=== PATIENT | male | born 1940 | race Caucasian/White ===

== ENCOUNTER → 2020-01-22 | Outpatient (CLI) | payer OTHER, MEDICARE ==
[~2020-01-22] MED LIST: HYDROCHLOROTH12.5 M1 PO
== END ==
LOC: SJCVC 13:56
DX: I44.0 Atrioventricular block, first degree (principal); I10 Essential (primary) hypertension; I25.10 Atherosclerotic heart disease of native coronary artery without angina pectoris

== ENCOUNTER → 2020-01-26 | Outpatient (CLI) | payer OTHER, MEDICARE ==
[~2020-01-26] MED LIST changes: +AMLODIPINE BESY10 MG PO; +ASPIR 8181 MG PO; +BRILINTA90 MG PO; +CRESTOR10 MG PO; +FLOMAX0.4 MG PO; +PROSCAR 5MG TABL5 MG PO
== END ==
LOC: SJCVCIMAG 09:31
DX: Z01.810 Encounter for preprocedural cardiovascular examination (principal); I25.10 Atherosclerotic heart disease of native coronary artery without angina pectoris; R93.1 Abnormal findings on diagnostic imaging of heart and coronary circulation

== ENCOUNTER 2020-02-05 09:29 | Observation (INO) | payer OTHER, MEDICARE ==
[~2020-02-05] VITALS: Ht 180.3 cm; Wt 91.3 kg
[~2020-02-05 09:29] MED LIST changes: -AMLODIPINE BESY10 MG PO; -ASPIR 8181 MG PO; -BRILINTA90 MG PO; -CRESTOR10 MG PO; -FLOMAX0.4 MG PO; -PROSCAR 5MG TABL5 MG PO
[2020-02-05 10:20] VITALS: BP 146/86
[2020-02-05 10:20] LABS: HEMATOCRIT 42.9 % (42.0-52.0); HEMOGLOBIN 14.4 gm/dL (14.0-18.0); MCH 30.1 pg (26.0-34.0); MCHC 33.5 g/dL (28.0-37.0); MCV 89.9 fL (80.0-100.0); RBC 4.78 mil/uL (4.50-6.00); RDW 13.5 % (10.5-14.5); WBC 5.6 thou/uL (4.0-11.0)
[2020-02-05] MEDS ORDERED: AMLODIPINE BESY10 MG PO (10:26)
[2020-02-05] MEDS ORDERED: PROSCAR 5MG TABL5 MG PO (10:27)
[2020-02-05] MEDS ORDERED: CRESTOR10 MG PO (10:27)
[2020-02-05] MEDS ORDERED: FLOMAX0.4 MG PO (10:27)
[2020-02-05 10:30] LABS: CALCIUM 9.1 mg/dL (8.5-10.1); CREATININE 1.2 mg/dL (0.7-1.3); POTASSIUM 4.1 mmol/L (3.5-5.1)
[2020-02-05 12:47] VITALS: BP 138/61
[2020-02-05 14:45] VITALS: BP 138/61
--- NOTE | 2020-02-05 15:15 | NUR ---
PT ARRIVED TO UNIT AT APPROX 1445. PT ALERT AND ORIENTED.VSS. DENIES PAIN. O2 SATS WNL ON ROOM AIR. RIGHT GROIN SITE CDI, NO HEMATOMA. BEDREST INITIATED. ADMISSION COMPLETE. POST CATH VITALS INITIATED. ADMISSION STRIP PRINTED AND DOCUMENTED. FLUIDS INFUSING PER ORDERS. HOME MEDS RESUMED PER ORDERS. PT CURRENTLY RESTING COMFORTABLY IN BED WITH NO APPARENT NEEDS. WILL CONTINUE TO MONITOR GROIN SITE, AND ASSIST WITH ANY NEEDS. FOLLOWING POC.
[2020-02-05 17:10] VITALS: BP 149/74
[2020-02-05 19:39] VITALS: BP 149/65
[2020-02-06 00:10] VITALS: BP 138/69
--- NOTE | 2020-02-06 03:07 | NUR ---
ASSUMED PT CARE AT 1900. PT IS ALERT AND ORIENTED WITH NO SIGN OF DISTRESS. RIGHT GROIN SITE IS INTACT. NO SIGN OF BRUISISNG OR HEMATOMA. PT IS ALERT AND ORIENTED, DENIES ANY PAIN. CALL LIGHT WITHIN REACH. ASSESSMENT COMPLETED AND DOCUMENTED. SCHEDULED MEDS ADMINISTERED TO PT. CONTINUE TO MONITOR PT. NO ACUTE EVENTS OVERNIGHT. DENIES ANY FURTHER NEEDS AT THIS TIME.
[2020-02-06 04:12] VITALS: BP 129/62
[2020-02-06 07:20] VITALS: BP 143/78
[2020-02-06 07:45] VITALS: BP 127/82
[2020-02-06] MEDS ORDERED: BRILINTA90 MG PO (09:03)
[2020-02-06] MEDS ORDERED: ASPIR 8181 MG PO (09:03)
[2020-02-06 11:20] VITALS: BP 122/65
--- NOTE | 2020-02-06 11:32 | NUR ---
PT A&OX4, VSS, DENIES PAIN. RIGHT GROIN SITE INTACT, FLAT, NO REDNESS OR TENDERNESS. IV REMAINS INTACT, PATIENT STEADY ON FEET WHEN WALKING AND DENIES SOA. NO SIGNS OF DISTRESS. WILL CONTINUE TO MONITOR.
[2020-02-06 12:27] VITALS: BP 122/65
--- NOTE | 2020-02-12 11:27 | CATHLAB ---
[facility] [place] [address] INVASIVE PROCEDURE REPORT Name: DI OLIVEIRA Room #: 215-P [facility] Jean MLuis#: [id number] Admission: 02/05/20 Attend Phys: Porfirio Bernabe Discharge: 02/06/20 Date of : 38 Report #: [id number] THIS REPORT FOR: cc: Ritesh Lucas Gregory DO Lammoglia, Francisco J. MD ~ APPROVED REPORT Study performed: 02/05/2020 10:58:34 Patient Details Patient Status: Out-Patient Room #: The patient is a 79 year-old male Event Personnel Porfirio Bernabe Lead Cashier, Miryam Reed RN RN, Simeon Sims RT(R)(CV) Antonio Pinon Sherra RTR Monitor Procedures Performed Art Access - R femoral artery* Left Heart Cath w/or w/o Coronaries [id number] [facility] [place] Place w/wo Plasty Single OM [id number] Initial Mod Sed Same Phys/QHP Gr5y 444100 08189 Mod Sed Same Phys/QHP Ea [id number] Hemostasis w/ Mynx, supervision of conscious sedation Indication Positive stress test, Chest pain Procedure Narrative The Right Groin^ was infiltrated with 1% Lidocaine subcutaneous anesthesia. A PINNACLE 4FR Sheath #[id number] sheath was inserted into the RFA^. Coronary angiography was performed using coronary diagnostic catheters. The right coronary system was accessed and visualized with a JR4 catheter. The left coronary system was accessed and visualized with a JL4 catheter. The left ventricle was accessed and visualized with a PIGTAIL catheter. Left ventricular/Aortic Valve gradient assessed via catheter pullback. Closure device was deployed with a 6 Fr MYNX CONTROL 6F/7F L#[id number]. Hemostasis was obtained with manual pressure following sheath removal without any complications. The patient tolerated the procedure well and there were no complications associated with the procedure. There was no hematoma. [facility] [employer] [place] [address] INVASIVE PROCEDURE REPORT Name: DI OLIVEIRA Room #: 215-P [facility] IN [facility]#: [id number] Admission: 02/05/20 Attend Phys: Porfirio Escobar Discharge: 02/06/20 Date of : 38 Report #: [id number] Intraoperative Conscious Sedation Sedation start time: 1108 Case end Time: 1147 Versed 2 mg Fluoro Time: 8.50 minutes Dose: DAP 51587.00 cGycm2 2067 mGy Contrast Type and Amount: Omnipaque 125 ml Coronary Angiography The patient's coronary anatomy is right dominant. Diagnostic Cath Left Main Normal origin and moderate caliber vessel which has a proximal tapering. No irregularities are noted as it bifurcates into a left into descending left circumflex coronary arteries. LAD Small to moderate caliber type II vessel which has a proximal tapering of approximately 30% which is eccentric. It then continues on giving rise to diagonal branches as it courses in the anterior interventricular sulcus. In its midportion it tapers to a smaller caliber vessel as it proceeds to the apex and terminates the bifurcating vessel. Fluoroscopic visualization demonstrates moderate calcifications along the epicardial coronary arteries. The first diagonal arises early and has a 90% proximal eccentric lesion noted Diagonal 1 Small caliber vessel of long length with a 90% eccentric lesion proximally. Then reconstitutes with only luminal irregularities as it courses towards the anterolateral wall Diagonal 2 Small diminutive caliber vessel Diagonal 3 Small diminutive caliber vessel Circumflex Small caliber nondominant vessel which courses in the AV groove and gives rise to a small caliber marginal branch at a trifurcation. The other 2 branches including the termination of the circumflex are small and significant caliber without high-grade lesions that terminated in the lateral and posterior aspect of the left ventricle OM1 Small-caliber vessel coursing along the lateral aspect of the heart Right Coronary Large caliber vessel of normal origin has a 30-40% eccentric lesion proximally. The vessel then continues on in the AV groove giving rise to small RA and RV branches and there is a 30% eccentric plaque noted. It continues posteriorly to the crux of the heart where a posterior descending artery originates up. The distal circulation consists of a posterolateral branch with only luminal irregularities but no high-grade lesions R PDA Small to moderate caliber vessel coursing the posterior [facility] [address] [place] [address] INVASIVE PROCEDURE REPORT Name: DI OLIVEIRA Room #: 215-P [facility] IN M.R.#: [id number] Admission: 02/05/20 Attend Phys: Porfirio Escobar Discharge: 02/06/20 Date of : 38 Report #: [id number] interventricular sulcus with luminal irregularities but no high-grade lesions present Left Ventriculography Left Ventriculography was not performed. Hemodynamics The aortic pressure is 124/56 mmHg with a mean of 72 mmHg. The left ventricular pressure is 126/6 mmHg with a mean of mmHg. The left ventricular end diastolic pressure is 23 mmHg. PCI Technique Following termination of intervention for the first diagonal branch the 4 Australian system was exchanged for a 6 Australian system. Utilizing standard JL4 guide and a 0.014 wire which was positioned distal to the lesion. A Medtronic TOÑITO stent was then positioned across the lesion and primarily deployed without difficulty or complications. Post deployment of flow was satisfactory and diameters were comparable to the coquille vessels. There is no loss of side branch distal embolization or intraluminal disruption noted. She tolerated procedure well there were no complications. Dual antiplatelet treatment was initiated. PCI Technique Lesion Percutaneous coronary intervention was performed on the first obtuse marginal branch segment. A LAUNCHER 6FR JL4 #[id number] Guide Catheter was used to engage the ostium. A Luge Wire .014 x 182CM #[id number] Interventional Guidewire was used to cross the lesion. STENT DEPLOYMENT A drug-eluting stent RESOLUTE BLAKE OTW 2.5 X 8 #[id number] was inserted and inflated up to 12.00atm for 33seconds. Additional Inflation: 12.00atm for 8seconds. Additional Inflation: 18.00atm for 10seconds. ADDITIONAL INFLATION WAS 18 TORREY FOR 7 SECS Conclusion 1. Coronary artery disease significant involving the first diagonal branch of the LAD and moderate involving the right coronary artery 2. Normal hemodynamics 3. Successful percutaneous revascularization and stenting with a TOÑITO Medtronic stent to the first diagonal branch Recommendations Cardiac Risk Reduction Program Medical Therapy [facility] [address] [place] [address] INVASIVE PROCEDURE REPORT Name: DI OLIVEIRA Room #: 215-P [facility]#: [id number] Admission: 02/05/20 Attend Phys: Porfirio Escobar Discharge: 02/06/20 Date of : 38 Report #: [id number] Medications Administered Ticagrelor <ELECTRONICALLY SIGNED> By: Porfirio Bernabe MD 02/12/20 1125 1125 Porfirio Bernabe MD /INF
--- NOTE | 2020-02-15 17:12 | D ---
[facility] [place] [address] DISCHARGE SUMMARY Name: DI OLIVEIRA Room #: 215-P [facility] Jean M.R.#: [id number] Admission: 02/05/20 Attend Phys: Porfirio Bernabe Discharge: 02/06/20 Date of : 38 Report #: [id number] THIS REPORT FOR: cc: Ritesh Lucas,Ritesh Walter,Porfirio Zhou MD ~ THIS REPORT FOR: //name// CC: Porfirio Lucas DATE OF SERVICE: 02/06/2020 ADMITTING DIAGNOSIS: Chest pains with abnormal perfusion scan. DISCHARGE DIAGNOSES: 1. Coronary artery disease. 2. Hypertension. 3. Dyslipidemia. 4. Benign prostatic hypertrophy. PROCEDURES PERFORMED: 1. Left heart catheterization. 2. 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 3. Supervision of conscious sedation. DISCHARGE MEDICATIONS: Home meds with the addition of Ticagrelor 90 mg p.o. b.i.d. and aspirin 81 mg daily. DISCHARGE DIET: [place] [employer] step 1 diet. FOLLOWUP: Dr. Bernabe in 3-4 weeks. BRIEF CLINICAL HISTORY: See history and physical in chart. HOSPITAL COURSE: The patient was admitted to the hospital and underwent uncomplicated left heart catheterization. This demonstrated the presence of significant high-grade lesions in a moderate caliber long length marginal branch. In view of this, it was felt that it may be the culprit lesion and stenting was performed without complications. The patient also had a moderate 50% lesion in the proximal RCA, which did not appear to be symptom causing a flow limiting. Post-procedure, remained electrically and hemodynamically [facility] [address] [place] [address] DISCHARGE SUMMARY Name: DI OLIVEIRA Room #: 215-P [facility] Jean Yu#: [id number] Admission: 02/05/20 Attend Phys: Porfirio Bernabe Discharge: 02/06/20 Date of : 38 Report #: [id number] stable. He was allowed to ambulate and discharged home in stable condition to follow up with the previously stated discharge instructions and medications. <ELECTRONICALLY SIGNED> By: Porfirio Bernabe MD 02/15/20 1712 1302 1309 Porfirio Bernabe MD /nt
== END 2020-02-06 14:40 | disposition home or self-care (01) ==
LOC: CATH 09:29 → 2N 12:57 → ENTRNSPT 02-06 14:16 → 2N 02-06 14:40
PROVIDERS: ADMIT Internal Medicine
DX: I25.10 Atherosclerotic heart disease of native coronary artery without angina pectoris (principal); I10 Essential (primary) hypertension; E78.5 Hyperlipidemia, unspecified; N40.0 Benign prostatic hyperplasia without lower urinary tract symptoms

== ENCOUNTER → 2020-03-01 | Outpatient (CLI) | payer OTHER, MEDICARE ==
[~2020-03-01] MED LIST changes: +AMLODIPINE BESY10 MG PO; +ASPIR 8181 MG PO; +BRILINTA90 MG PO; +CRESTOR10 MG PO; +FLOMAX0.4 MG PO; +PROSCAR 5MG TABL5 MG PO
== END ==
LOC: SJCVC 13:23
PROVIDERS: ATTEND Internal Medicine
DX: I25.10 Atherosclerotic heart disease of native coronary artery without angina pectoris (principal); E78.5 Hyperlipidemia, unspecified; I10 Essential (primary) hypertension; Z79.899 Other long term (current) drug therapy; Z87.891 Personal history of nicotine dependence

== ENCOUNTER → 2021-03-04 | Outpatient (CLI) | payer OTHER, MEDICARE | LOC: SJCVCIMAG 11:58 | PROVIDERS: ATTEND Internal Medicine | DX: I08.1 Rheumatic disorders of both mitral and tricuspid valves (principal); I31.3 Pericardial effusion (noninflammatory); I11.9 Hypertensive heart disease without heart failure; I25.10 Atherosclerotic heart disease of native coronary artery without angina pectoris; Z79.01 Long term (current) use of anticoagulants; Z79.899 Other long term (current) drug therapy ==

== ENCOUNTER → 2021-07-28 | Outpatient (CLI) | payer OTHER, MEDICARE | LOC: SJCVC 13:25 | PROVIDERS: ATTEND Internal Medicine | DX: R94.31 Abnormal electrocardiogram [ECG] [EKG] (principal); I48.0 Paroxysmal atrial fibrillation; E78.5 Hyperlipidemia, unspecified; I10 Essential (primary) hypertension; I25.10 Atherosclerotic heart disease of native coronary artery without angina pectoris; Z88.8 Allergy status to other drugs, medicaments and biological substances; Z79.899 Other long term (current) drug therapy; Z87.891 Personal history of nicotine dependence ==